=== PATIENT | female | born 1975 | race Caucasian/White ===

== ENCOUNTER 2024-05-12 15:43 | Emergency (ER) | payer OTHER ==
[~2024-05-12] VITALS: Ht 162.6 cm; Wt 73.6 kg
[2024-05-12] MEDS ORDERED: SINGULAIR10 MG PO (16:20)
[2024-05-12] MEDS ORDERED: XYZAL2.5 MG/5 M (16:20)
[2024-05-12] MEDS ORDERED: LIPITOR20 MG PO (16:20)
[2024-05-12] MEDS: SODIUM CHLORIDE 0.9% 1000ML 1,000 ML IV ONE (16:39)
[2024-05-12] MEDS: FAMOTIDINE 20 MG/2 ML VIAL IV STA (16:39)
[2024-05-12] MEDS: ONDANSETRON HCL INJ 2MG/ML 2ML 2 MG/ML VIAL IV STA (16:39)
[2024-05-12] MEDS ORDERED: ONDANSETRON ODT4 MG PO (16:57)
[2024-05-12] MEDS ORDERED: PEPCID20 MG PO (16:58)
[2024-05-12] MEDS ORDERED: BACTRIM DS TAB1 EACH PO (17:22)
[2024-05-12 17:40] VITALS: PULSE 73; RESP 18; TEMP 97.9; O2SAT 99
== END 2024-05-12 17:41 | disposition home or self-care (01) ==
LOC: FSED 15:56
DX: R11.2 Nausea with vomiting, unspecified (principal); K52.9 Noninfective gastroenteritis and colitis, unspecified; E86.0 Dehydration; E78.5 Hyperlipidemia, unspecified; B20 Human immunodeficiency virus [HIV] disease
CPT/HCPCS: 80053; 80307; 81003; 85025; 99283; J2405; J7030